=== PATIENT | female | born 1975 | race Caucasian/White ===

== ENCOUNTER → 2020-01-16 12:13 | Outpatient (CLI) | payer BC, SELFPAY ==
--- NOTE | ~2020-01-16 | MM_ITS ---
EXAMINATION: MM screening maggie BI w maurice HISTORY: Screening mammogram TECHNIQUE: Craniocaudal and mediolateral oblique 3-D tomosynthesis images were obtained and synthetic 2-D images were generated. CAD analysis was submitted and interpreted. COMPARISON: Comparison to multiple prior studies sequentially, with oldest reviewed study dated 02/2014. BREAST PARENCHYMAL COMPOSITION: There are scattered areas of fibroglandular density. FINDINGS: There is no evidence of suspicious mass, calcification, or architectural distortion to sugg est malignancy in either breast. There has been no suspicious interval change. IMPRESSION: 1. No mammographic evidence of malignancy. 2. Recommend routine screening mammography in one year. BI-RADS Category 1: Negative Reviewed, dictated and finalized at location A. ASSEMBLER
== END ==
DX: Z12.31 Encounter for screening mammogram for malignant neoplasm of breast (principal)
CPT/HCPCS: 77063; 77067

== ENCOUNTER 2023-07-07 17:13 | Emergency (ER) | payer BC, SELFPAY ==
--- NOTE | ~2023-07-07 | XR_ITS ---
EXAMINATION: XR ribs BI 3V w CXR 2V Exam Date/Time: 07/07/2023 17:39 CDT HISTORY: fell onto stairs, pain on both sides of lower ribs Comparison: None available. RESULT: Lines, tubes, and devices: None. Lungs and pleura: Clear. Cardiothymic silhouette: Stable. Other: No acute upper abdominal finding. Nondisplaced oblique right eighth anterior rib fracture IMPRESSION: No acute cardiopulmonary process. Nondisplaced oblique right eighth anterior rib fracture. Reviewed, dictated and finalized at location K. IMPRESSION: No acute cardiopulmonary process. Nondisplaced oblique right eighth anterior ri b fracture.
[2023-07-07 17:21] VITALS: BP 118/75; PULSE 79; RESP 18; TEMP 36.4; O2SAT 99
--- NOTE | 2023-07-07 18:01 | ED.GENADULT ---
HPI - General Adult General Chief complaint: Abdominal Pain Stated complaint: Abdominal Pain Due To Fall Source: patient Mode of arrival: ambulatory Limitations: no limitations History of Present Illness HPI narrative: 48-year-old female presented for complaint of bilateral rib pain after injury 6 days ago. She states she landed on both ribs when she fell at the top of the stairs. Pt continues to report pain worse on the right side since the fall. Today she reports both sides are painful and radiating up towards the underarms. Taking Tylenol and lidocaine cream without significant relief. Pain is worse with a deep breath. Denies shortness of breath, wheezing, hemoptysis, nausea, vomiting, diarrhea, fevers or chills. Smokes 1/2ppd. Related Data Home Medications Medication Instructions Recorded Confirmed levothyroxine 75 mcg tablet 75 mcg PO DAILY 07/07/23 07/07/23 (Synthroid) venlafaxine 75 mg capsule,extended 75 mg PO DAILY 07/07/23 07/07/23 release 24 hr Allergies Allergy/AdvReac Type Severity Reaction Status Date / Time hydrocodone AdvReac Mild N/V Verified 10/20/16 06:41 Review of Systems Review of Systems: CONSTITUTIONAL: Denies body aches, fever, chills, or sweats. EYES: Denies visual changes, redness, or discharge. ENT: Denies rhinorrhea, congestion, sore throat, or otalgia. CARDIOVASCULAR: Denies chest pain, palpitations, or edema. RESPIRATORY: Denies cough or dyspnea. GASTROINTESTINAL: Denies abdominal pain, nausea, vomiting, or diarrhea. GENITOURINARY: Denies dysuria or hematuria. SKIN: Denies rash, itching, or wounds. MUSCULOSKELETAL: Reports rib pain denies back pain, joint pain, or myalgia. NEUROLOGIC: Denies headache, numbness, tingling, or weakness. PSYCH: Denies depression or anxiety. All systems reviewed & are unremarkable except as noted in HPI and below PMFSH Past Medical History Medical History (Updated 07/07/23 @ 18:16 by Chelsi Syed APRN) No pertinent past medical history Social History Social History (Updated 07/07/23 @ 18:36 by Chelsi Syed APRN) Smoking packs per day: 0.5 Smoking cigarettes per day: 10.0 Smoking status: Current every day smoker Comments At time of signature, I have reviewed and agree with nursing past medical, surgical, social and family history unless otherwise noted. Please see nursing chart for further information. There is no relevant family history pertinent to the presenting complaint Exam Narrative: GENERAL: Well-appearing, well-nourished, and in no acute distress. HEAD: Normocephalic, atraumatic. EYES: EOMI. No redness or drainage. Conjunctivae normal. ENT: Mucous membranes pink and moist. NECK: Normal AROM. Supple. CHEST: No respiratory distress. Clear to auscultation. HEART: Regular rate and rhythm. No murmur appreciated. Normal peripheral pulses. ABDOMEN: Soft, nontender, nondistended, normal active bowel sounds. MUSCULOSKELETAL: Bilateral anterior ribs tender at 6-8 area, no apparent deformity or bruising. No VPT. EXTREMITIES: Normal range of motion. No edema. SKIN: Warm, dry, no rash. Capillary refill normal. Normal skin turgor. NEURO: No focal deficits. Alert and oriented x3. Gait steady. PSYCH: Normal affect. Course Course Emergency Course: Patient is aware of diagnosis, understands and agrees to treatment plan. Anticipatory guidance given. Patient agrees to follow-up as directed and is aware of reasons to seek care at the emergency department. Portions of this record may have been created with voice recognition software Level of Care: Express Care Visit Vital Signs Vital signs: Vital Signs Temperature 97.5 F L 07/07/23 17:21 Pulse Rate 79 07/07/23 17:21 Respiratory Rate 18 07/07/23 17:21 Blood Pressure 118/75 07/07/23 17:21 Pulse Oximetry 99 07/07/23 17:21 Oxygen Delivery Room Air 07/07/23 17:21 Temperature 97.5 F L 07/07/23 17:21 Pulse Rate 79 07/07/23
== END 2023-07-07 18:49 | disposition home or self-care (01) ==
PROVIDERS: Emergency Provider Nurse Practitioner Family; PCP Nurse Practitioner
DX: S22.31XA Fracture of one rib, right side, initial encounter for closed fracture (principal); W10.9XXA Fall (on) (from) unspecified stairs and steps, initial encounter; F17.210 Nicotine dependence, cigarettes, uncomplicated; F32.A Depression, unspecified
CPT/HCPCS: 71046; 71110; 99213; G0463

== ENCOUNTER 2024-03-30 07:31 | Outpatient (CLI) | payer BC, SELFPAY ==
--- NOTE | ~2024-03-30 | US_ITS ---
Abdominal Sonogram: Real-time sonographic imaging of the abdomen was performed. Clinical History: Abdominal pain Findings: The liver appears normal with no evidence of mass lesion or bile duct dilatation. Main por darren vein demonstrates normal direction of flow. The spleen is normal in size without evidence of foca l lesion. The gallbladder is well distended, and appears normal with no evidence of gallstone or wal l thickening. The common bile duct measures 4 mm. The visualized pancreas, aorta, and IVC are unrema rkable. The right kidney measures 10.6 cm in length and the left kidney measures 10.7 cm. There is no hydronephrosis or renal calculus. Impression: Unremarkable abdominal ultrasound. Reviewed, dictated and finalized at location . Impression: Unremarkable abdominal ultrasound.
== END 2024-03-30 07:32 ==
LOC: MICIMG 07:32
PROVIDERS: PCP Nurse Practitioner; Visit Provider Nurse Practitioner
DX: R10.10 Upper abdominal pain, unspecified (principal)
CPT/HCPCS: 76700

== ENCOUNTER 2024-07-02 15:55 | Emergency (ER) | payer BC, SELFPAY ==
[2024-07-02 16:04] VITALS: BP 121/78; PULSE 80; RESP 18; TEMP 36.4; O2SAT 98
--- NOTE | 2024-07-02 16:14 | WPDEDEXPGENP ---
HPI - General Ped General Chief complaint: Urogenital-Female Stated complaint: uti symptoms Source: patient, RN notes reviewed and old records reviewed Mode of arrival: ambulatory Limitations: no limitations History of Present Illness HPI narrative: patient presents with complaints of urinary hesitancy, frequency, burning that began this morning. She denies any fever, chills, sweats. She denies any garrett hematuria. She has had UTIs in the past, states this feels similar. She denies any back pain or abdominal pain. Related Data Home Medications Medication Instructions Recorded Confirmed levothyroxine 75 mcg tablet 75 mcg PO DAILY 07/07/23 07/07/23 (Synthroid) cholecalciferol (vitamin D3) 10 10 mcg PO DAILY 07/02/24 07/02/24 mcg (400 unit) tablet lactobacillus combination no.8 3 cell 07/02/24 billion cell capsule magnesium 100 mg tablet mg PO 07/02/24 omega-3 fatty acids 1,000 mg PO DAILY 07/02/24 07/02/24 Allergies Allergy/AdvReac Type Severity Reaction Status Date / Time hydrocodone AdvReac Mild N/V Verified 07/02/24 16:10 Pediatric Review of Systems All systems ED: reviewed and negative except as stated Constitutional: Denies fever or chills Cardiovascular: Denies chest pain Respiratory: Denies cough, dyspnea or wheezing Gastrointestinal: Denies abdominal pain Genitourinary: Reports as per HPI, dysuria and polyuria; Denies vaginal bleeding or vaginal discharge PMFSH Past Medical History Medical History (Updated 07/02/24 @ 16:28 by Sanjuana Huston APRN) No pertinent past medical history Social History Social History Smoking packs per day: 0.5 Smoking cigarettes per day: 10.0 Smoking status: Current every day smoker Pediatric Exam General: Limitations: no limitations General appearance: well-appearing, well-hydrated and well-nourished Eye: Eye exam: Present normal appearance ENT: ENT exam: normal oropharynx and mucous membranes moist Expanded ENT Exam: Mouth exam pediatric: Present normal external inspection Throat exam: Present normal inspection and uvula midline Neck: Neck exam: Present normal inspection and full ROM; Absent lymphadenopathy Respiratory: Respiratory exam: Present normal lung sounds bilaterally; Absent respiratory distress, wheezes, stridor or accessory muscle use Cardiovascular: Cardiovascular exam: Present regular rate and normal rhythm : Female exam: Present other ( No CVA tenderness, no tenderness to bladder on palpation) Extremities Exam: Extremities exam: Present normal inspection Back Exam: Back exam: Present normal inspection Neurological Exam: Neurological exam: Present alert and oriented X3 Skin: Skin exam: Present warm, dry, intact and normal color Course Course Level of Care: Express Care Visit Vital Signs Vital signs: Vital Signs Temperature 97.6 F 07/02/24 16:04 Pulse Rate 80 07/02/24 16:04 Respiratory Rate 18 07/02/24 16:04 Blood Pressure 121/78 07/02/24 16:04 Pulse Oximetry 98 07/02/24 16:04 Oxygen Delivery Room Air 07/02/24 16:04 Temperature 97.6 F 07/02/24 16:04 Pulse Rate 80 07/02/24 16:04 Respiratory Rate 18 07/02/24 16:04 Blood Pressure 121/78 07/02/24 16:04 Pulse Oximetry 98 07/02/24 16:04 Oxygen Delivery Room Air 07/02/24 16:04 Medical Decision Making MDM Narrative Medical decision making narrative: patient nontoxic appearing, no distress. UA indicative of UTI. Will treat with Macrobid home. Patient follow-up with primary care provider, emergency department for new or worse symptoms. Discharge instructions reviewed with patient, as well as provided in writing per nursing staff. The instructions also include specific and strict return/GO TO THE ER as well as f/u information. All questions have been answered, and the patient deny any further questions with discharge and discharge plan. Some part
[2024-07-02 16:38] LABS: EDUAAPPEAR Cloudy; EDUABILI Negative; EDUABLOOD 2+; EDUACOLOR1 Yellow; EDUAGLUCOSE Negative; EDUAKETONE Negative; EDUALEUKO 2+; EDUANITRATE Negative; EDUAPROTEIN Negative; EDUASPGRAVITY 1.015; EDUAUROBILI 0.2
== END 2024-07-02 16:31 | disposition home or self-care (01) ==
PROVIDERS: Emergency Provider Nurse Practitioner Family; PCP Nurse Practitioner
DX: N39.0 Urinary tract infection, site not specified (principal); F17.210 Nicotine dependence, cigarettes, uncomplicated
CPT/HCPCS: 81003; 87077; 87086; 87088; 87186; 99213; G0463

== ENCOUNTER 2024-09-05 10:32 | Outpatient (CLI) | payer BC, SELFPAY ==
--- NOTE | ~2024-09-05 | MM_ITS ---
EXAMINATION: MM screening maggie BI w maurice HISTORY: Screening TECHNIQUE: Craniocaudal and mediolateral oblique 3-D tomosynthesis images were obtained and synthetic 2-D images were generated. CAD analysis was submitted and interpreted. COMPARISON: Comparison to multiple prior studies sequentially, with oldest reviewed study dated 02/2014. BREAST PARENCHYMAL COMPOSITION: Not dense: There are scattered areas of fibroglandular density. FINDINGS: Right breast asymmetries are stable. There is no evidence of suspicious mass, calcification , or architectural distortion to suggest malignancy in either breast. There has been no suspicious in terval change. IMPRESSION: 1. No mammographic evidence of malignancy. 2. Recommend routine screening mammography in one year. BI-RADS Category 1: Negative . Reviewed, dictated and finalized at location B.
== END 2024-09-05 10:33 | disposition home or self-care (01) ==
LOC: MICIMG 10:34
PROVIDERS: PCP Nurse Practitioner; Visit Provider Nurse Practitioner
DX: Z12.31 Encounter for screening mammogram for malignant neoplasm of breast (principal)
CPT/HCPCS: 77063; 77067

== ENCOUNTER 2024-10-10 11:17 | Outpatient (CLI) | payer BC, SELFPAY ==
--- NOTE | ~2024-10-10 | DEXA_ITS ---
Bone Density Report Name: SABA FORBES Age: 49 Sex: Female Ethnicity: White Date of : 1975 Indication: postmenopausal; screening for osteoporosis; parental hip fracture; Referring Provider: JOLEEN, JAMES Mackay Study: Bone densitometry was performed. Exam Date: October 10, 2024 Accession number: [id number] Bone Density: Region BMD T-score Z-score Classification AP Spine(L1-L4) 0.795 -2.3 -1.4 Osteopenia Femoral Neck (Left) 0.491 -3.2 -2.4 Osteoporosis Total Hip (Left) 0.597 -2.8 -2.3 Osteoporosis Femoral Neck (Right) 0.548 -2.7 -1.9 Osteoporosis Total Hip (Right) 0.660 -2.3 -1.8 Osteopenia Femoral Neck Mean 0.520 -3.0 -2.1 Osteoporosis Total Hip Mean 0.629 -2.6 -2.0 Osteoporosis World Health Organization criteria for BMD impression classify patients as: Normal (T-score at or above -1.0), Osteopenia (T-score between -1.0 and -2.5), or Osteoporosis (T-score at or below -2.5). 10-year Fracture Risk: FRAX not reported because: Some T-score for Spine Total or Hip Total or Femoral Neck at or below -2.5 Clinical Information Provided by Patient: Parent has had a hip fracture Smokes Has used the following medications: Vitamin D, Calcium Patient maximum height was 64 Menopause Age: 49 No regular weight bearing exercise Drinks caffeinated beverages Onset of menses at age 10 Number of children 2 Impression: The patient has osteoporosis, based on the Left Femoral Neck T-score. The patient has risk factors, including: parental hip fracture, smoking. Discussion: HIGH RISK OF FRACTURE. BONE DENSITY IS UNDESIRABLY LOW AT ONE OR MORE SKELETAL SITES, CONSISTENT WITH OSTEOPOROSIS. ALSO, BONE DENSITY IS LOWER THAN EXPECTED FOR AGE AND SEX AT ONE OR MORE SKELETAL SITES; RECOMMEND A DILIGENT SEARCH FOR SECONDARY CAUSES OF BONE LOSS. This patient's lowest T-score meets the World Health Organization's (WHO) criteria for osteoporosis at one or more sites (T-score -2.5 or below). In untreated patients, the risk of osteoporotic fracture increases approximately two-fold for each 1.0 SD decrease in T-score. Low bone density is not the only risk factor for fracture; also consider factors such as patient's age, frailty or poor health, risk of falling, risk of injury, previous osteoporotic fracture, family history of osteoporosis, cigarette smoking, low body weight, etc. Not everyone with low bone mineral density has osteoporosis; osteomalacia and other metabolic bone disorders should also be considered. Patients who have osteoporosis should be evaluated for specific diseases and conditions (secondary causes) that may cause or contribute to bone loss. The [place] [employer]ocrinologists (AACE) and National Osteoporosis Foundation (NOF) recommend pharmacologic intervention for all postmenopausal women whose T-score is in this range. Also, this patient's bone mineral density is below the range considered normal for healthy age-, sex-, and race-matched controls at least one site (Z-score -2.0 or below). This warrants careful evaluation for diseases and conditions that may contribute to accelerated bone loss. The patient should follow a healthful lifestyle (good nutrition with adequate calcium and vitamin D, and appropriate weight-bearing exercise). Follow-Up: Consider a repeat BMD and Vertebral Fracture Assessment (VFA) exam in 2 years or sooner if medically necessary, to reassess this patient's status. Reported by: THOR on 10/10/2024 11:41:00 AM. Reviewed, dictated and finalized at location A.
== END 2024-10-10 11:18 | disposition home or self-care (01) ==
PROVIDERS: PCP Nurse Practitioner; Visit Provider Nurse Practitioner
DX: Z78.0 Asymptomatic menopausal state (principal); M85.89 Other specified disorders of bone density and structure, multiple sites; M81.0 Age-related osteoporosis without current pathological fracture
CPT/HCPCS: 77080

== ENCOUNTER 2025-10-07 08:56 | Outpatient (CLI) | payer BC, SELFPAY ==
--- NOTE | ~2025-10-07 | MM_ITS ---
EXAMINATION: MM screening maggie BI w maurice HISTORY: Screening TECHNIQUE: Craniocaudal and mediolateral oblique 3-D tomosynthesis images were obtained and synthetic 2-D images were generated. CAD analysis was submitted and interpreted. COMPARISON: Comparison to multiple prior studies sequentially, with oldest reviewed study dated , 08/11/2016 BREAST PARENCHYMAL COMPOSITION: There are scattered areas of fibroglandular density. FINDINGS: There is no evidence of suspicious mass, calcification, or architectural distortion to suggest malignancy in either breast. IMPRESSION: 1. No mammographic evidence of malignancy. 2. Recommend routine screening mammography in one year. BI-RADS Category 1: Negative Reviewed, dictated and finalized at location B. PING SPECIALIST
== END 2025-10-07 08:57 | disposition home or self-care (01) ==
LOC: ANHFOHIMG 08:58
PROVIDERS: PCP Nurse Practitioner; Visit Provider Obstetrics & Gynecology
DX: Z12.31 Encounter for screening mammogram for malignant neoplasm of breast (principal)
CPT/HCPCS: 77063; 77067